=== PATIENT | female | born 1995 | race Caucasian/White ===

== ENCOUNTER 2025-03-08 20:31 | Emergency (ER) | payer OTHER ==
[2025-03-08 21:00] VITALS: PULSE 105; RESP 20; O2SAT 100
== END 2025-03-08 22:00 | disposition left against medical advice (07) ==
LOC: ER 20:31
DX: G43.909 Migraine, unspecified, not intractable, without status migrainosus (principal); Z53.21 Procedure and treatment not carried out due to patient leaving prior to being seen by health care provider